=== PATIENT | female | born 1995 | race Caucasian/White ===

== ENCOUNTER 2019-02-27 12:04 | Emergency (ER) | payer OTHER ==
[~2019-02-27] VITALS: Ht 144.8 cm; Wt 49.1 kg
--- NOTE | 2019-02-27 12:28 | NUR ---
AMBULATORY TO ED ROOM 37 W/ STEADY GAIT.
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
[2019-02-27] MEDS ORDERED: PROBIOTIC (12:46)
[2019-02-27] MEDS ORDERED: ONDANSETRON ODT 4 MG ONE (12:55)
[2019-02-27 13:00] VITALS: BP 108/75
[2019-02-27] MEDS ORDERED: ONDANSETRON ODT 4 MG PO ONE (13:00)
== END 2019-02-27 13:19 | disposition home or self-care (01) ==
LOC: ED 13:13
DX: S06.0X9A Concussion with loss of consciousness of unspecified duration, initial encounter (principal); S16.1XXA Strain of muscle, fascia and tendon at neck level, initial encounter; G44.309 Post-traumatic headache, unspecified, not intractable; G44.219 Episodic tension-type headache, not intractable; V49.49XA Driver injured in collision with other motor vehicles in traffic accident, initial encounter; Y93.89 Activity, other specified; Y92.410 Unspecified street and highway as the place of occurrence of the external cause; Y99.8 Other external cause status
CPT/HCPCS: 99283; Q0162